=== PATIENT | female | born 1980 | race Caucasian/White ===

== ENCOUNTER 2017-11-08 19:13 | Emergency (ER) | payer OTHER ==
[~2017-11-08] VITALS: Ht 157.5 cm; Wt 82.5 kg
[2017-11-08 19:28] VITALS: Ht 157.5 cm; Wt 82.5 kg
[2017-11-08 21:41] LABS: BASOPHIL % 0.3 % (0-2); PLATELET COUNT 245 x10^3mcL (130-400); RED CELL DISTRIBUTION WIDTH 13.2 % (11.5-14.5)
[2017-11-08 22:20] LABS: microscopic required? NO
[2017-11-08 22:40] LABS: UA SPECIFIC GRAVITY >=1.030 (1.005-1.035); urine erythrocyte NEGATIVE (NEGATIVE)
[2017-11-08 22:56] VITALS: BP 103/59
== END 2017-11-08 22:56 | disposition home or self-care (01) ==
LOC: ED 19:13
PROVIDERS: Emergency Medicine
DX: O20.0 Threatened abortion (principal); O20.8 Other hemorrhage in early pregnancy; Z3A.16 16 weeks gestation of pregnancy
CPT/HCPCS: 36415